=== PATIENT | male | born 1945 | race Caucasian/White ===

== ENCOUNTER 2017-05-10 10:53 | Emergency (ER) | payer MEDICARE, OTHER ==
--- NOTE | 2017-05-10 11:16 | ED Physician Documentation ---
PD HPI Fall - Stated complaint Stated Complaint: INJURIES 2ND TO FALL - Chief complaint Chief Complaint: General - History obtained from History obtained from: Patient, Family (spouse) - History of Present Illness Mechanism of injury: Other (Fell off a ladder.) Fall distance: 5 to 10ft Where injury occurred: Home Timing - onset: How many minutes ago (30) Injury(ies) location: Head, Back Quality of pain: Pain Associated symptoms: LOC (possibly). No: Neck pain, Dyspnea, Nausea / vomiting Similar symptoms before: Has not had sx before - Additional information Additional information: The patient is a 72-year-old male who arrives via private auto with pain in his back after falling off a ladder about one half hour prior to arrival. He hit his head, and may have had brief loss of consciousness. He denies a headache or neck pain. He was ambulatory after the incident with assistance from his . He denies shortness of breath, nausea, or vomiting. Review of Systems Constitutional: denies: Fever Eyes: denies: Decreased vision Ears: denies: Tinnitus/ringing Nose: denies: Congestion Throat: denies: Sore throat Cardiac: denies: Chest pain / pressure Respiratory: denies: Dyspnea, Cough GI: denies: Abdominal Pain, Nausea, Vomiting : denies: Dysuria Skin: reports: Abrasion (s) (scalp) Musculoskeletal: reports: Back pain. denies: Neck pain, Extremity pain Neurologic: reports: Head injury, LOC (Possibly, but not certain.). denies: Focal weakness, Numbness, Altered mental status, Headache PD PAST MEDICAL HISTORY - Past Medical History Cardiovascular: None Respiratory: None Neuro: None GI: GERD Derm: Other - Past Surgical History Past Surgical History: Yes Derm: Skin cancer surgery - Present Medications Home Medications: Ambulatory Orders Medication Instructions Recorded Confirmed Esomeprazole Magnesium [Nexium] 40 mg PO DAILY 06/02/14 05/10/17 Aspirin 81 mg PO DAILY 05/10/17 05/10/17 Cyclobenzaprine [Flexeril] 10 mg PO TID PRN #20 tablet 05/10/17 Glucosam/Chondr-MSM#6/Manganes 1 cap PO DAILY 05/10/17 05/10/17 [Glucosamine-Chondroitin Sftgl] HYDROcod/ACETAM 5/325 [Guttenberg 5/325] 1 - 2 ea PO Q6H PRN #20 tablet 05/10/17 Senna [Senokot] 8.6 mg PO DAILY #10 tablet 05/10/17 - Allergies Allergies/Adverse Reactions: Allergies Allergy/AdvReac Type Severity Reaction Status Date / Time No Known Drug Allergies Allergy Verified 06/02/14 09:08 - Social History Does the pt smoke?: No Smoking Status: Never smoker Does the pt drink ETOH?: No Does the pt have substance abuse?: No - Immunizations Immunizations are current?: Yes - POLST Patient has POLST: No PD ED PE NORMAL - Vitals Vital signs reviewed: Yes (Systolic hypertension initially.) - General General: Alert and oriented X 3, Well developed/nourished - HEENT HEENT: PERRL, EOMI, Ears normal, Other (There is swelling and abrasion of the left occipital scalp. No bony step-off is palpated. No hemotympanum.) - Neck Neck: No bony TTP, No JVD - Cardiac Cardiac: RRR, No murmur - Respiratory Respiratory: No respiratory distress, Clear bilaterally, Other (No chest wall tenderness.) - Abdomen Abdomen: Normal bowel sounds, Soft, Non tender - Back Back: Other (Tenderness to palpation in the upper lumbar region, with slight soft tissue swelling. No ecchymosis or abrasion.) - Derm Derm: Normal color, No rash - Extremities Extremities: No tenderness to palpate, Normal ROM s pain - Neuro Neuro: Alert and oriented X 3, No motor deficit, No sensory deficit Results - Vitals Vitals: Oxygen O2 Source Room air - EKG (time done) 11:13 Rate: Rate (enter#) (84) Rhythm: NSR [place]: Normal Intervals: Normal [place] QRS: Normal Ischemia: Normal ST segments Computer interpretation: Agree with computer - Labs Labs: Laboratory Tests 05/10/17 12:55 Urine Color YELLOW Urine Clarity CLEAR Urine pH 5.5 Ur Specific [place] 1.025 Urine Protein NEGATIVE Urine Glucose (UA) NEGATIVE Urine Ketones NEGATIVE Urine Occult Blood NEGATIVE Urine Nitrite NEGATIVE Urine Bilirubin NEGATIVE Urine Urobilinogen 0.2 (NORMAL) Ur Leukocyte Esterase NEGATIVE Ur Microscopic Review NOT INDICATED Urine Culture Comments NOT INDICATED - Rads (name of study) Head CT w/o Radiology: Prelim report reviewed, EMP read contemporaneously, See rad report ( Generalized age-related cortical atrophic changes, without evidence of acute intracranial abnormality.) C-Spine CT Radiology: Prelim report reviewed, EMP read contemporaneously, See rad report ( Degenerative changes. No acute disease.) T-Spine xrays Radiology: Prelim report reviewed, EMP read contemporaneously, See rad report ( No acute bony abnormality.) CT lumbar spine Radiology: Prelim report reviewed, EMP read contemporaneously, See rad report ( Acute nondisplaced fractures of left L1 and left L2 transverse processes.Acute mild wedging T12, L2, and L5. No retropulsed bone fragments nor bony compromise of the central spinal canal. Left-sided disc herniation L3-L4 with moderate central spinal cord stenosis. Bilateral nephrolithiasis.) Procedures - Splint (location) back Splint applied by: Nurse Type of splint: Other (TLSO brace) Other: Patient tolerated well, No complications, Neurovascular intact PD MEDICAL DECISION MAKING - ED course Complexity details: reviewed results, re-evaluated patient, considered differential, d/w patient, d/w family, d/w it sales consultant ED course: The patient's presentation is significant for multiple lumbar spine fractures caused by falling off a ladder. CT of the lumbar spine reveals nondisplaced left transverse process fractures of L1 and L2. It also reveals acute mild wedge fractures of T12, L2, and L5, and left sided disc herniation at L3-L4 with moderate central canal stenosis. CT of the head and cervical spine reveal no skull fracture, intracranial hemorrhage, or C-spine bony injury. Plain films of the thoracic spine are negative. Urinalysis reveals no hematuria. Treatment in the emergency department included administration of normal saline 1 L IV and hydromorphone morphology 1 mg IV. A TLSO brace was applied. The patient subsequently demonstrated ability to ambulate with tolerable discomfort. I discussed this condition with the orthopedic surgeon technical illustrations map inker. He advised outpatient follow-up in the orthopedic clinic. The patient is being discharged with prescriptions for Vicodin, Flexeril, and for Senokot. I discussed with him and his the results of the imaging studies, symptomatic treatment and outpatient follow-up, as well as potentially worrisome signs or symptoms that should prompt reevaluation in the emergency department. Departure - Departure Disposition: 01 Home, Self Care Clinical Impression: Lumbar verterbral fracture, traumatic, Multiple transverse process fractures Condition: Stable Instructions: ED Fx Comp Vertebral Follow-Up: [facility] [Provider Group] Prescriptions: Cyclobenzaprine [Flexeril] 10 mg PO TID PRN #20 tablet PRN Reason: Spasms HYDROcod/ACETAM 5/325 [Guttenberg 5/325] 1 - 2 ea PO Q6H PRN #20 tablet PRN Reason: Pain Senna [Senokot] 8.6 mg PO DAILY #10 tablet Comments: 1. Use the TLSO brace to help provide stabilization and comfort for your back. 2. Apply ice pack to your lower back intermittently for the next 3 or 4 days. 3 You can use ibuprofen, up to 600 mg 3 times daily for its anti-inflammatory effect. 4. You can use Vicodin as prescribed if needed for pain. 5. He can use Flexeril as prescribed if needed for muscle spasms. 6. Drink plenty of fluids, and eat fruits to help prevent constipation. 7. You can also use Senokot as prescribed if needed for constipation. 8. Follow-up with orthopedics within 1-2 weeks. Call to schedule an appointment. 9. Return to the emergency department if you develop increasing pain despite the pain medication, persistent vomiting, or otherwise worsening symptoms. Discharge Date/Time: 05/10/17 17:11
--- NOTE | 2017-05-10 12:07 | CT Preliminary Report ---
Exam: CT Head W/O IMPRESSION: Generalized age-related cortical atrophic changes without evidence of acute intracranial abnormality. [facility] SITE ID: [id number]
--- NOTE | 2017-05-10 12:10 | CT Report ---
EXAM: CT HEAD EXAM DATE: 05/10/2017 11:39 AM. CLINICAL HISTORY: Fall off ladder; altered mental status. COMPARISON: None. TECHNIQUE: Multiaxial CT images were obtained from the foramen magnum to the vertex. IV contrast: Non e. Reformats: Coronal. In accordance with CT protocol optimization, one or more of the following dose reduction techniques w ere utilized for this exam: automated exposure control, adjustment of mA and/or KV based on patient s ize, or use of iterative reconstructive technique. FINDINGS: Parenchyma: No intraparenchymal hemorrhage. No evidence of mass, midline shift, or CT findings of acu te infarction. Brar-white differentiation is distinct. Extraaxial Spaces: Normal for age. No subdural or epidural collections. Ventricles: The ventricles and cortical sulci are enlarged, consistent with age-related tissue loss. Sinuses: Imaged paranasal sinuses, orbits, and mastoids show no significant abnormality. Bones: Unremarkable. Other: Diffuse chronic microangiopathic white matter changes. IMPRESSION: Generalized age-related cortical atrophic changes without evidence of acute intracranial abnormality. [facility] Referring Provider Line: [phone] SITE ID: [id number]
--- NOTE | 2017-05-10 12:15 | CT Preliminary Report ---
Exam: CT Cervical Spine W/O IMPRESSION: Degenerative changes. No acute disease. [facility] SITE ID: [id number]
--- NOTE | 2017-05-10 12:18 | CT Report ---
EXAM: CT CERVICAL SPINE WITHOUT CONTRAST DATE: 05/10/2017 11:47 AM HISTORY: Fall off ladder; neck pain. COMPARISONS: None. TECHNIQUE: Thin-section axial images were acquired of the cervical spine without contrast. Post-proce ssing: Coronal and sagittal reformats. Other: None. In accordance with CT protocol optimization, one or more of the following dose reduction techniques w ere utilized for this exam: automated exposure control, adjustment of mA and/or KV based on patient s ize, or use of iterative reconstructive technique. FINDINGS: Alignment: Normal. No scoliosis or spondylolisthesis. Bones: No fracture or bone lesion. Interspace Levels/Facets: C1-C2: Mild degenerative changes. C2-C3: Mild degenerative facet disease, left worse than right. C3-C4: Moderate right degenerative facet disease. C4-C5: Moderate degenerative facet disease. C5-C6: Mild disk space narrowing with anterior osteophytes. Buye-qg-lznwcrhi degenerative facet disea se. C6-C7: Moderate to marked disk space narrowing with marginal lipping. C7-T1: Unremarkable. Musculature: Grossly unremarkable. Other: The paravertebral and prevertebral soft tissues are normal. The lung apices are clear. IMPRESSION: Degenerative changes. No acute disease. [facility] Referring Provider Line: [phone] SITE ID: [id number]
--- NOTE | 2017-05-10 12:32 | XRAY Preliminary Report ---
Exam: XR Thoracic Spine 2 View IMPRESSION: No acute disease. [facility] SITE ID: [id number]
--- NOTE | 2017-05-10 12:34 | XRAY Report ---
EXAM: THORACIC SPINE RADIOGRAPHY EXAM DATE: 05/10/2017 12:07 PM. CLINICAL HISTORY: Fall off ladder; pain lower thoracic spine. COMPARISON: None. TECHNIQUE: 3 views. FINDINGS: Alignment: Normal. No spondylolisthesis or scoliosis. Bones: No fractures or bone lesions. Disks: Disk spaces generally well preserved, with mild marginal lipping through the mid and lower tho racic levels. Soft Tissues: Calcified granulomata in the spleen. Otherwise unremarkable. IMPRESSION: No acute disease. [facility] Referring Provider Line: [phone] SITE ID: [id number]
[2017-05-10] MEDS ORDERED: HYDROmorphone 1 MG/ML SYRINGE IVP STA (12:50)
[2017-05-10] MEDS ORDERED: HYDROmorphone 1 MG/ML SYRINGE ONE (12:52)
[2017-05-10 13:02] LABS: BILIRUBIN,URINE NEGATIVE (NEGATIVE); PH,URINE 5.5 PH (5.0-7.5)
[2017-05-10 13:05] LABS: UA CHARGE (STRIP ONLY) YES; UR CULTURE IF IND NOT INDICATED
--- NOTE | 2017-05-10 14:10 | CT Preliminary Report ---
Exam: CT Lumbar Spine W/O IMPRESSION: 1. Acute nondisplaced fractures left L1 and left L2 transverse processes. 2. Acute mild wedging T12, L2 and L5. No retropulsed bone fragments nor bony compromise of the centra l spinal canal. 3. Left-sided disk herniation L3-L4 with moderate central spinal canal stenosis. 4. Bilateral nephrolithiasis. [facility] The above critical findings were discussed with provider Dr Berrios by Dr. Kelley Pozo at 14:08 h rs on 05/10/17. SITE ID: [id number]
--- NOTE | 2017-05-10 14:24 | CT Report ---
EXAM: CT LUMBAR SPINE WITHOUT CONTRAST EXAM DATE: 05/10/2017 01:36 PM. CLINICAL HISTORY: Fall off ladder; lumbar back pain. COMPARISONS: None. TECHNIQUE: Thin-section axial images were acquired of the lumbar spine from inferior endplate of T10 to mid body S3 without contrast. Post-processing: Coronal and sagittal reformats. Other: None. In accordance with CT protocol optimization, one or more of the following dose reduction techniques w ere utilized for this exam: automated exposure control, adjustment of mA and/or KV based on patient s ize, or use of iterative reconstructive technique. FINDINGS: Alignment: Normal. No scoliosis or spondylolisthesis. Bones: Five ymc-fot-rkrftwy lumbar vertebral bodies are present. Acute nondisplaced fractures involving the mid portions of the left L1 and left L2 transverse process es. Acute mild compression fracture involving the superior endplate, anterior two-thirds T12, 30% loss of height anteriorly, no posterior retropulsed bone fragments. Acute mild compression fracture involving the anterior half superior endplate L2, 10% loss of height anteriorly. Mature Schmorl's node off the inferior endplate. No retropulsed bone fragments. Acute mild compression fracture involving the central and anterior aspects superior endplate L5 with central volume loss, Schmorl's node configuration, no retropulsed bone fragments. Disk Levels/Facets: Mild degenerative changes T11-T12. T12-L1: Mild degenerative changes. L1-L2: Unremarkable. L2-L3: Moderate narrowing vacuum disk phenomena. Mild central spinal canal stenosis. L3-L4: Mild narrowing. Moderate left-sided disk herniation L3-L4, posterior displacement of the exiti ng left L4 nerve root. Old large Schmorl's node defect inferior endplate of L2. Moderate central spin al canal stenosis. L4-L5: Normal caliber. Mild central spinal canal stenosis. L5-S1: Unremarkable. Musculature: Normal. No fatty atrophy. Other: Small nonobstructing stones in the kidneys. Small amount of edema adjacent to the acute fractures. No epidural blood products. IMPRESSION: 1. Acute nondisplaced fractures left L1 and left L2 transverse processes. 2. Acute mild wedging T12, L2 and L5. No retropulsed bone fragments nor bony compromise of the centra l spinal canal. 3. Left-sided disk herniation L3-L4 with moderate central spinal canal stenosis. 4. Bilateral nephrolithiasis. [facility] The above critical findings were discussed with provider Dr Berrios by Dr. Kelley Pozo at 14:08 h rs on 05/10/17. Referring Provider Line: [phone] SITE ID: [id number]
[2017-05-10] MEDS ORDERED: SODIUM CHLORIDE 0.9% 1,000 ML IV ONE (15:35)
[2017-05-10 17:05] VITALS: BP 126/64
== END 2017-05-10 17:11 | disposition home or self-care (01) ==
LOC: ED 10:53
DX: S32.019A Unspecified fracture of first lumbar vertebra, initial encounter for closed fracture (principal); S32.020A Wedge compression fracture of second lumbar vertebra, initial encounter for closed fracture; S32.050A Wedge compression fracture of fifth lumbar vertebra, initial encounter for closed fracture; S22.080A Wedge compression fracture of T11-T12 vertebra, initial encounter for closed fracture; W11.XXXA Fall on and from ladder, initial encounter; Y92.009 Unspecified place in unspecified non-institutional (private) residence as the place of occurrence of the external cause; M51.26 Other intervertebral disc displacement, lumbar region; S00.01XA Abrasion of scalp, initial encounter
CPT/HCPCS: 36415; 70450; 72070; 72125; 72131; 81003; 93005; 96374; 99283; 99285; J1170; 81001; 87086